=== PATIENT | male | born 1945 | race Caucasian/White ===

== ENCOUNTER → 2017-09-28 12:13 | Emergency (ER) | payer MEDICARE, BC ==
[~2017-09-28 12:13] MED LIST: Diazepam SYRINGE* 5 MG/ML 2 ML SYRINGE (10 MG total) IM ONE; Diazepam SYRINGE* 5 MG/ML 2 ML SYRINGE (10 MG total) IV ONE; LORazepam INJ* 2 MG/ML 1 ML VIAL IM ONE; LORazepam INJ* 2 MG/ML 1 ML VIAL ONE; Morphine INJ* 4 MG/ML 1 ML CARPUJECT IM ONE
--- NOTE | 2017-09-28 13:28 | ED ---
Back Pain - HPI Summary HPI Summary: Patient presents to the ED with CC of back pain. He states 6 days ago he was lifting wood when he hurt his back (lumbar spine) and He was seen twice before here in the ED and continues to have pain. He was seen by his PCP 5 days ago and given tizanidine without relief. He then came to the ED and was given morphine and dilauded with relief and sent home with ativan and oxycodones. He continues to state this is not helping his pain. I have agreed to do an image of the spine. I have also explained that we are unable do provide more than pain medication and muscle relaxers but if this is not improving his symptoms he has an option of coming in to the hospital. - History of Current Complaint Chief Complaint: EDBackInjuryPain Stated Complaint: BACK PAIN Time Seen by Provider: 09/28/17 12:29 Hx Obtained From: Patient Onset/Duration: Sudden Onset Onset/Duration: Started Hours Ago Timing: Constant Back Pain Location: Is Discrete @ - bilateral low back pain Pain Intensity: 9 Pain Scale Used: 0-10 Numeric Character: Aching Aggravating Symptom(s): Walking Alleviating Symptom(s): Nothing Associated Signs And Symptoms: Negative: Weakness, Numbness, Bladder Incontinence, Bowel Incontinence, Weight Loss, Pain with Weight Bearing - Risk Factors AAA Risk Factors: Negative TAD Risk Factors: Negative Cauda Equina Risk Factors: Negative Epidural Abscess Risk Factors: Negative - Allergies/Home Medications Allergies/Adverse Reactions: Allergies Allergy/AdvReac Type Severity Reaction Status Date / Time No Known Allergies Allergy Verified 09/28/17 12:17 PMH/Surg Hx/FS Hx/Imm Hx Previously Healthy: Yes - Immunization History Hx Pertussis Vaccination: No Immunizations Up to Date: Unable to Obtain/Confirm Infectious Disease History: No Infectious Disease History: Denies: Traveled Outside the [place] in Last 30 Days - Social History Occupation: Unemployed Lives: With Family Alcohol Use: Occasionally Hx Substance Use: No Substance Use Type: Reports: None Hx Tobacco Use: Yes Smoking Status (MU): Light Every Day Tobacco Smoker Review of Systems Constitutional: Negative Negative: Fever, Chills, Fatigue Eyes: Negative ENT: Negative Cardiovascular: Negative Gastrointestinal: Negative Positive: Other - patient with liver transplant Positive: no symptoms reported, see HPI Positive: Arthralgia Skin: Negative Negative: Weakness, Paresthesia, Numbness, Syncope All Other Systems Reviewed And Are Negative: Yes Physical Exam Triage Information Reviewed: Yes Vital Signs On Initial Exam: Initial Vitals Temp Pulse Resp BP Pulse Ox 99.5 F 96 16 178/65 96 09/28/17 12:17 09/28/17 12:17 09/28/17 12:17 09/28/17 12:17 09/28/17 12:17 Vital Signs Reviewed: Yes Appearance: Positive: Well-Appearing, Well-Nourished Skin: Positive: Warm, Skin Color Reflects Adequate Perfusion Head/Face: Positive: Normal Head/Face Inspection Eyes: Positive: EOMI, CHAU, Conjunctiva Clear Neck: Positive: Supple, Nontender, No Lymphadenopathy Respiratory/Lung Sounds: Positive: Clear to Auscultation, Breath Sounds Present Cardiovascular: Positive: RRR, Pulses are Symmetrical in both Upper and Lower Extremities Musculoskeletal: Positive: Pain @ - lower back pain without radiations - described as a band of tightness from a strain Neurological: Positive: Speech Normal Psychiatric: Positive: Normal, Affect/Mood Appropriate AVPU Assessment: Alert Diagnostics - Vital Signs Vital Signs Temp Pulse Resp BP Pulse Ox 09/28/17 12:17 99.5 F 96 16 178/65 96 - Laboratory Lab Statement: Any lab studies that have been ordered have been reviewed, and results considered in the medical decision making process. Back Pain Course/Dx - Course Course Of Treatment: Patient evaluated for acute low back pain. He has been seen 3 times for similar since last week. (twice in ED) He is not finding relief from tramadol, ativan and oxycodone. I have discussed treatment options with him and [facility] admit based on pain control. He declines this. I have given him 4mg morphine and 1mg ativan per request both IM injections. CT lumbar obtained. IMPRESSION: Degenerative disc disease at multiple levels with mild broad-based protrusions. at L2-L3 and L3-L4. Facet arthropathy is noted at L3-L4 L4-L5 and L5-S1. No fracture is. identified. I have discussed with patient that back pain usually will take 3-6 weeks prior to alleviation. Best practice is moist heat and tylenol as needed (patient is unable to take ibuprofen). I did not give him more pain medications or muscle relaxers since he has 2 days left on both and 3 days left on the tramadol. No one in the ED including our orthopedic physician is able to comfortably provide a block to the back which the patient is requesting. Advised him to follow up wt Dr. Fernandez for a referall to the pain control clinic and any further imaging as needed. No B/B dysfunction or numbness, tingling into the bilateral legs is noted. Patient is ambulating well with a cane. He is OK for discharge at this time. - Diagnoses Differential Diagnosis/HQI/PQRI: Positive: Herniated Disc, Strain, Sprain Provider Diagnoses: Acute low back pain Discharge - Discharge Plan Condition: Stable Disposition: HOME Patient Education Materials: Acute Low Back Pain (ED), Lower Back Exercises (ED ) Referrals: Josep Hernandez MD [Primary Care Provider] - Nate Mitchell MD [Medical Doctor] - Additional Instructions: Please follow up with Dr. Hernandez Moist heat to the area as much as possible Ativan up to twice to three times daily as needed for muscle spasms Tramadol up to four times daily for pain For pain not well controlled with these measures, oxycodone up to 4 times daily on opposite schedule of ativan to allow for a more even pain control If symptoms persist, please call our neurosurgeon for more imaging if needed I have given you a referral
--- NOTE | 2017-09-28 14:23 | RAD ---
Indication: Back pain. CT of the lumbar spine was obtained in the axial plane. Sagittal and coronal reconstructed images were obtained. The vertebral bodies appear normal in height and alignment. No evidence of compression fracture is noted. At L5-S1 there is broad-based protrusion. No central or foraminal stenosis is noted. At L4-L5 there is degenerative disc disease present. No central or foraminal stenosis is noted. At L3-L4 degenerative disc disease with calcification of the annulus is noted. No central or foraminal stenosis is noted. Mild facet arthropathy is noted at L3-L4. At L2-L3 degenerative disc disease with broad-based protrusion flattens the thecal sac. No central or foraminal stenosis is noted. Mild facet arthropathy is noted. At L1-L2 there is degenerative disc disease noted. No focal protrusion is identified. No fracture is identified. IMPRESSION: Degenerative disc disease at multiple levels with mild broad-based protrusions at L2-L3 and L3-L4. Facet arthropathy is noted at L3-L4 L4-L5 and L5-S1. No fracture is identified.
[2017-09-28 15:48] VITALS: BP 0/0
== END | disposition home or self-care (01) ==
LOC: ED 12:13
DX: M54.5 Low back pain (principal)
CPT/HCPCS: 72131; 96372; 99282; J2060; J2270

== ENCOUNTER 2019-04-27 08:34 | Day surgery (SDC) | payer MEDICARE, BC ==
--- NOTE | 2019-04-22 06:43 | HP ---
AMENDED REPORT NOW INCLUDES DESIGNATED COSIGNER - ESIGNED BEFORE ADJUSTMENT PREOPERATIVE HISTORY AND PHYSICAL: DATE OF ADMISSION/SURGERY: 04/27/19 DATE OF OFFICE VISIT: 04/21/19 ATTENDING SURGEON: Dr. Richelle Matthews.* (DICTATED BY SOILA WATSON) PROCEDURE: Left long trigger finger release. CHIEF COMPLAINT: Left long trigger finger. HISTORY OF PRESENT ILLNESS: Adam is a 73-year-old male who presents to the clinic for left long trigger finger. He has failed conservative measures and therefore agreed to undergo left long trigger finger release with Dr. Matthews on 04/27/19. PAST MEDICAL HISTORY: COPD, cirrhosis with a history of a transplant, hepatitis C that has been treated in the past, GERD, hypertension, osteoarthritis, ulcerative colitis. PAST SURGICAL HISTORY: Liver transplant and 2 liver surgeries prior, shoulder surgery, and appendectomy. The patient denies prior complications with anesthesia. MEDICATIONS: 1. Tacrolimus 1 mg 1 by mouth twice a day. 2. Mycophenolate 250 mg 4 tabs twice a day. 3. Acetaminophen 325 two tabs every 6 hours. 4. Magnesium 250 mg 3 tabs every day. 5. Metoprolol 25 mg 1 daily. 6. Mesalamine 1.2 g 4 tabs every day. 7. Pantoprazole 40 mg 1 daily. 8. Amlodipine 10 mg 1 daily. 9. Spiriva 18 mcg 1 inhalation every morning. 10. Sildenafil citrate 100 mg use as needed. 11. Amoxicillin/clavulanate 875/125 one by mouth twice a day. ALLERGIES: No known drug allergies. FAMILY HISTORY: The patient is adopted, so it is unknown. SOCIAL HISTORY: He lives with his spouse. He is retired. He is a smoker, a pack per day. He denies alcohol consumption. REVIEW OF SYSTEMS: A 14-point review of systems was reviewed with the patient. Positive for current complaint, otherwise negative. Denies fever, chills, chest pain, shortness of breath, history of bleeding disorder, history of DVT or PE. PHYSICAL EXAMINATION GENERAL: A 73-year-old well-developed, well-nourished male, in no acute distress. VITAL SIGNS: Height 70, weight 171, pulse 68, blood pressure 132/64, respiratory rate 16, temperature 98.0, BMI 24.5. HEENT: Normocephalic, atraumatic. PERRLA. Throat clear. NECK: Supple. PULMONARY: Lungs are clear to auscultation bilaterally. No wheezing, rhonchi, or rales. CARDIO: Regular rate and rhythm. S1, S2. No murmurs, gallops, or rubs. No edema. ABDOMEN: Positive bowel sounds. Soft, nontender. NEURO: Alert and oriented x3. Cranial nerves grossly intact. MUSCULOSKELETAL: Left upper extremity: The skin is intact. No warmth or erythema. His wrist is nontender to palpation. He has tenderness to palpation over the left long finger nick with some triggering. Full range of motion of the wrist and able to fully flex and extend all of his digits, able to make a full fist. +2 radial pulse. Sensation intact to light touch distally. ASSESSMENT AND PLAN: The patient is scheduled to undergo left long finger trigger finger release with Dr. Matthews on 04/27/19. He will follow up 9 to 10 days postop for followup and suture removal. Tramadol will be used for postop pain management. SOILA WATSON [id number]/[facility]PS #: [id number] [facility]
[~2019-04-27 08:34] MED LIST changes: +Buffered Lidocaine 1% SYRIN* 1 ML/SYRINGE INTRADERM ONE; +Dexamethasone IV* 4 MG/ML 1 ML (4 MG) IV SLOW PU ONE; -Diazepam SYRINGE* 5 MG/ML 2 ML SYRINGE (10 MG total) IM ONE; -Diazepam SYRINGE* 5 MG/ML 2 ML SYRINGE (10 MG total) IV ONE; -LORazepam INJ* 2 MG/ML 1 ML VIAL IM ONE; -LORazepam INJ* 2 MG/ML 1 ML VIAL ONE; +Lactated Ringers 1000 ML Bag* 1,000 ML IV SCH; -Morphine INJ* 4 MG/ML 1 ML CARPUJECT IM ONE
[2019-04-27] MEDS ORDERED: Dexamethasone IV* 4 MG/ML 1 ML (4 MG) ONE (09:06)
[2019-04-27] MEDS ORDERED: Midazolam* 1 MG/ML 2 ML VIAL (2 MG) ONE (09:44)
[2019-04-27] MEDS ORDERED: Ondansetron INJ* 2 MG/ML VIAL ONE (09:44)
[2019-04-27] MEDS ORDERED: Propofol* 10 MG/ML 20 ML BTL ONE (09:44)
[2019-04-27] MEDS ORDERED: fentaNYL* 50 MCG/ML 2 ML VIAL (100 MCG VIAL) ONE (09:44)
[2019-04-27] MEDS ORDERED: Naloxone* 0.4 MG/ML 1 ML VIAL IV PRN (10:06)
[2019-04-27] MEDS ORDERED: Lidocaine 1% INJ* 10 MG/ML 30 ML SDV ONE (10:14)
[2019-04-27 11:02] VITALS: BP 136/62
--- NOTE | 2019-04-27 12:16 | OP ---
DATE OF OPERATION: 04/27/19 [facility] DATE OF : 49 SURGEON: Richelle Matthews MD FURNITURE RESTORER: SOILA Gabriel ANESTHESIA: Local MAC. PRE-OP DIAGNOSIS: Left middle finger trigger finger. POST-OP DIAGNOSIS: Left middle finger trigger finger. OPERATIVE PROCEDURE: Left middle finger trigger release. ESTIMATED BLOOD LOSS: Zero. INDICATIONS FOR PROCEDURE: Adam is a 73-year-old man who has locking and triggering of his left middle finger. He has failed conservative treatment with cortisone injection, presents now for trigger finger release. DESCRIPTION OF PROCEDURE: The patient was brought to the operative room. He was given a sedation anesthetic and a local infiltration of 10 cc of 1% plain lidocaine in the palm of his left hand. The skin of his left hand and forearm was prepped and draped in the usual sterile fashion. The hand and forearm were exsanguinated and the tourniquet elevated to 250 mmHg. A transverse incision was made centered over the A1 nick of the left long finger. We dissected bluntly through the subcutaneous tissue. The nick was incised longitudinally completely releasing the flexor tendons which were in good condition. The wound was irrigated and the skin edges reapproximated with 4-0 nylon suture. The wound was dressed with Xeroform, 4x4, Webril, and an Tacos wrap. The patient tolerated the procedure well and was brought to the recovery room in good condition. [id number]/[facility] #: [id number] MTDSven
== END 2019-04-27 11:13 | disposition home or self-care (01) ==
LOC: OREAST 08:34
PROVIDERS: ATTEND Orthopaedic Surgery
DX: M65.332 Trigger finger, left middle finger (principal); J44.9 Chronic obstructive pulmonary disease, unspecified; K74.60 Unspecified cirrhosis of liver; Z94.4 Liver transplant status; B18.2 Chronic viral hepatitis C; K21.9 Gastro-esophageal reflux disease without esophagitis; I10 Essential (primary) hypertension; M19.90 Unspecified osteoarthritis, unspecified site; K51.90 Ulcerative colitis, unspecified, without complications; F17.210 Nicotine dependence, cigarettes, uncomplicated
CPT/HCPCS: J1100; J2250; J2405; J2704; J3010